=== PATIENT | female | born 1970 | race Two or more races ===

== ENCOUNTER 2020-06-28 13:07 | Emergency (ER) | payer BC ==
[~2020-06-28] VITALS: Ht 160 cm; Wt 77.1 kg
[2020-06-28] MEDS ORDERED: AMLODIPINE BESYL5 MG (14:06)
== END 2020-06-28 17:27 | disposition home or self-care (01) ==
LOC: ER 13:07
DX: S80.01XA Contusion of right knee, initial encounter (principal); W01.198A Fall on same level from slipping, tripping and stumbling with subsequent striking against other object, initial encounter; Y93.59 Activity, other involving other sports and athletics played individually; Y92.832 Beach as the place of occurrence of the external cause; Y99.8 Other external cause status